=== PATIENT | female | born 1995 | race African-American/Black ===

== ENCOUNTER 2017-08-06 11:46 | Emergency (ER) | payer SELFPAY ==
[2017-08-06 13:23] LABS: URINE HCG POC HCG NEGATIVE (Negative)
[2017-08-06 13:30] LABS: BILIRUBIN,URINE NEGATIVE (NEG); CLARITY,URINE CLEAR; COLOR,URINE YELLOW; GLUCOSE,URINE NEGATIVE (NEG); NITRITE,URINE NEGATIVE (NEG); PH,URINE 5.5; PROTEIN,URINE NEGATIVE (NEG-TRACE); UROBILINOGEN,URINE 0.2 mg/dL (0.2 mg/dL)
[2017-08-06 13:46] LABS: BACTERIA,URINE MODERATE /HPF (0-FEW); RBC,URINE 0 /HPF (0-2); SQUAMOUS EPITHELIAL CELL,UR MANY /LPF
[2017-08-06 13:59] LABS: ADD MAN DIFF? NO
[2017-08-06 14:08] LABS: BASO % 0 % (0-3); EOS % 0 % (0-3); HEMATOCRIT 31.7 % (36.0-47.0); HEMOGLOBIN 10.6 g/dL (12.0-15.5); LYMPH # 1.2 x10^3/uL (1.0-4.8); LYMPH % 12 % (24-48); MEAN CORPUSCULAR HEMOGLOBIN 28 pg (25-35); MEAN CORPUSCULAR HGB CONC 33 g/dL (31-37); MEAN CORPUSCULAR VOLUME 84 fL (79-100); MONO # 0.7 x10^3/uL (0.0-1.1); MONO % 7 % (0-9); NEUT # 8.7 x10^3uL (1.8-7.7); NEUT % 81 % (31-73); PLATELET COUNT 131 x10^3/uL (140-400); RED BLOOD COUNT 3.78 x10^6/uL (3.50-5.40); RED CELL DISTRIBUTION WIDTH 14.1 % (11.5-14.5); WHITE BLOOD COUNT 10.7 x10^3/uL (4.0-11.0)
[2017-08-06 14:15] LABS: ANION GAP 11 (6-14); BLOOD UREA NITROGEN 12 mg/dL (7-20); BUN/CREATININE RATIO 17 (6-20); CALCIUM 9.7 mg/dL (8.5-10.1); CARBON DIOXIDE 25 mmol/L (21-32); CHLORIDE 104 mmol/L (98-107); CREATININE 0.7 mg/dL (0.6-1.0); GFR 127.8; GLUCOSE 88 mg/dL (70-99); POTASSIUM 3.8 mmol/L (3.5-5.1); SODIUM 140 mmol/L (136-145)
[2017-08-06 14:20] LABS: ALBUMIN 3.6 g/dL (3.4-5.0); ALBUMIN/GLOBULIN RATIO 1.2 (1.0-1.7); ALK PHOS 51 U/L (46-116); ALT (SGPT) 12 U/L (14-59); AST (SGOT) 14 U/L (15-37); LIPASE 103 U/L (73-393); TOTAL BILIRUBIN 0.5 mg/dL (0.2-1.0); TOTAL PROTEIN 6.7 g/dL (6.4-8.2)
[2017-08-06] MEDS ORDERED: LIDOCAINE WITH 8.4% SOD BICARB 3 ML DISP.SYRIN. ×2 (15:15)
[2017-08-06] MEDS: AZITHROMYCIN 250 MG TABLET. PO ×2 (15:20)
[2017-08-06] MEDS: cefTRIAXone IM 250 MG VIAL IM ×2 (15:20)
[2017-08-06] MEDS ORDERED: IBUPROFEN 400 MG TABLET. PO ×2 (15:30)
[2017-08-09 22:11] LABS: CHLAMYDIA PROBE Negative (Negative); GC PROBE Negative (Negative)
== END 2017-08-06 16:35 | disposition home or self-care (01) ==
LOC: ER 11:46
DX: R10.2 Pelvic and perineal pain (principal)
CPT/HCPCS: 36415; 76830; 76856; 80053; 81001; 81025; 83690; 85025; 87086; 87491; 87591; 96372; 99285-25; J0696; Q0111; Q0144

== ENCOUNTER 2019-06-23 10:43 | Emergency (ER) | payer OTHER ==
[~2019-06-23] VITALS: Ht 160 cm; Wt 49.9 kg
[~2019-06-23 10:43] MED LIST: IBUP-1027 PO; METR500T PO
[2019-06-23 11:24] VITALS: BP 110/64
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
== END 2019-06-23 14:01 | disposition home or self-care (01) ==
LOC: ER 10:43
DX: O9A.312 Physical abuse complicating pregnancy, second trimester (principal); S09.90XA Unspecified injury of head, initial encounter; Z3A.15 15 weeks gestation of pregnancy; Y04.2XXA Assault by strike against or bumped into by another person, initial encounter; Y93.89 Activity, other specified; Y92.89 Other specified places as the place of occurrence of the external cause; Y99.8 Other external cause status
CPT/HCPCS: 76815; 99284-25